=== PATIENT | female | born 2000 | race Caucasian/White ===

== ENCOUNTER 2024-07-20 21:15 | Emergency (ER) | payer SELFPAY ==
[~2024-07-20] VITALS: Ht 152.4 cm; Wt 58.5 kg
[2024-07-20 21:53] VITALS: BP 142/99; PULSE 81; RESP 18; TEMP 98.7; O2SAT 100
[2024-07-20] MEDS: ACETAMINOPHEN EXTRA STRENGTH 500 MG TAB PO ONE (22:52)
[2024-07-20] MEDS: METOCLOPRAMIDE 10 MG TAB PO ONE (22:52)
--- NOTE | 2024-07-20 22:58 | NUR ---
PT TO CT
[2024-07-20 23:16] VITALS: O2SAT 100
[2024-07-20 23:17] LABS: APPEARANCE,URINE CLEAR (CLEAR); BILIRUBIN,URINE NEGATIVE (NEGATIVE); BLOOD, URINE NEGATIVE (NEGATIVE); COLOR,URINE YELLOW (YELLOW); LEUKOCYTE ESTERASE ,URINE TRACE (NEGATIVE); NITRITE, URINE NEGATIVE (NEGATIVE); PROTEIN,URINE NEGATIVE (NEGATIVE); UGLUCOSE NEGATIVE (NEGATIVE); UROBILINOGEN,URINE 0.2 EU/dL (0.2 - 1)
[2024-07-20 23:17] LABS: BASOPHILS % (AUTO) 0.6 % (0.0-2.0); EOSINOPHILS % (AUTO) 0.5 % (0.0-4.0); HEMATOCRIT 39.3 % (36-48); HEMOGLOBIN 13.3 g/dL (12.0-16.0); LYMPHOCYTES # (AUTO) 2.6 K/uL (2.5-16.5); MEAN CORPUSCULAR HEMOGLOBIN 29 pg (27-31); MEAN CORPUSCULAR HGB CONC 34 g/dL (33-37); MEAN CORPUSCULAR VOLUME 85.1 fL (80-94); MONOCYTES # (AUTO) 0.5 K/uL (0.8-1.0); MONOCYTES % (AUTO) 6.6 % (1.7-9.3); NEUTROPHILS # (AUTO) 3.8 K/uL (1.8-7.7); NEUTROPHILS % (AUTO) 54.3 % (42.2-75.2); PLATELET COUNT (AUTO) 262 K/uL (140-450); RED BLOOD CELL COUNT(AUTO) 4.62 MIL/uL (4.20-5.40); RED CELL DISTRIBUTION WIDTH 12.6 % (11.6-13.7); WHITE BLOOD COUNT (AUTO) 6.9 K/uL (4.8-10.8)
[2024-07-20 23:34] LABS: RBC,URINE 0-5 /HPF (0-5)
[2024-07-20 23:34] LABS: ANION GAP 15.8 (8-16); CALCIUM 9.2 mg/dL (8.5-10.1); CARBON DIOXIDE 24.9 mmol/L (21-32); CREATININE 0.7 mg/dL (0.6-1.3); POTASSIUM 3.7 mmol/L (3.5-5.1)
[2024-07-20 23:35] LABS: BACTERIA,URINE 1+ /HPF (None Seen); MUCUS,URINE 1+ /LPF (None Seen); SQUAMOUS EPITHELIAL CELL,UR 4-10 (MOD) /LPF (0-3 (FEW))
[2024-07-20 23:46] LABS: ALBUMIN 4.1 g/dL (3.4-5.0); BILIRUBIN,DIRECT 0.1 mg/dL (0.0-0.3); TOTAL BILIRUBIN 0.5 mg/dL (0.0-1.0); TOTAL PROTEIN, SERUM 8.2 g/dL (6.4-8.2)
[2024-07-20 23:47] LABS: PARTIAL THROMBOPLASTIN TIME 27.2 secs (22-35.6); PROTHROMBIN TIME 10.5 secs (10.8-13.4)
[2024-07-21] MEDS ORDERED: CEPH-588 PO (01:28)
[2024-07-21] MEDS ORDERED: NAPR-337 PO (01:28)
[2024-07-21] MEDS ORDERED: ONDA-188 PO (01:28)
--- NOTE | 2024-07-21 01:32 | NUR ---
Patient discharged with v/s stable. Written and verbal after care instructions given and explained. Patient verbalized understanding. Ambulatory with steady gait. All questions addressed prior to discharge. Advised to follow up with PMD.
== END 2024-07-21 01:32 | disposition home or self-care (01) ==
LOC: MED 21:15
DX: N39.0 Urinary tract infection, site not specified (principal); R51.9 Headache, unspecified; H53.8 Other visual disturbances; Z79.899 Other long term (current) drug therapy
CPT/HCPCS: 36415; 70450; 80048; 80076; 81001; 81025; 83690; 85025; 85610; 85730; 87086; 99284; J8597